=== PATIENT | male | born 1940 | race Caucasian/White ===

== ENCOUNTER 2018-10-25 08:15 | Outpatient (CLI) | payer MEDICARE ==
--- NOTE | 2018-10-25 08:42 | RAD ---
EXAM: Two views chest PROVIDED CLINICAL HISTORY: Cough COMPARISON: 07/20/2011. FINDINGS: Postsurgical changes related to CABG are noted. Coronary artery stent overlies the right cardiac bord er. Cardiac silhouette is within normal limits.There are increased interstitial densities throughout the lungs greater in the upper lung zones is overall nonspecific. This could be related to chronic interstitial lung changes, but infectious process or pulmonary edema is a differential consideration. No consolidation or pleural fluid is identified. There is evidence of prior vertebropl asty changes involving the L2 vertebral body partially imaged on the lateral view. IMPRESSION: Interstitial densities within the lungs bilaterally greater in the upper lung zones and on the right. Findings are nonspecific and could be related to chronic interstitial lung changes, but an element of mild pulmonary edema or infectious process is a possibility. Follow-up evaluation is recommended.
== END 2018-10-25 08:16 | disposition home or self-care (01) ==
LOC: SCSRAD 08:15
PROVIDERS: ATTEND Family Medicine
DX: R05 Cough (principal); J98.4 Other disorders of lung
CPT/HCPCS: 71046

== ENCOUNTER 2018-12-11 11:59 | Outpatient (CLI) | payer MEDICARE ==
--- NOTE | 2018-12-11 13:17 | CT ---
CT of the chest: 12/11/2018 COMPARISON: None available HISTORY: Chronic cough, wheezing, history of testicular cancer TECHNIQUE: Axial CT imaging is obtained at 5 mm intervals from the thoracic inlet through the upper a bdomen with IV contrast. Coronal reformatted imaging obtained. FINDINGS: No axillary, hilar, or mediastinal lymphadenopathy is noted. The imaged upper abdomen appears grossly unremarkable. Midline sternotomy wires are present. There is extensive coronary arterial calcification. Mediastinal clips are present, evidence of prior CABG. No pleural, pericardial, or mediastinal fluid is seen. There is no pneumothorax. Extensive coarse increased linear interstitial densities are noted throughout both lungs with a perip heral predominance. This includes the bilateral lower lobes, particularly inferiorly/posteriorly, the inferior aspect of the right middle lobe, and the superior aspect of bilateral lung apices. There does appear to be a mild degree of superimposed mild bilateral upper lobe groundglass opacity. There is peripheral subpleural pulmonary parenchymal cystic change, especially within the bilateral l ower lobes inferiorly, evidence of a degree of pulmonary fibrosis. There is no discrete/dominant pulmonary parenchymal mass lesion or nodule noted on the left. There is nonspecific a nodule along the major fissure, best seen on coronal image 69, measuring 7 mm in transverse dimension. This likely represents a lymph node. Review of the osseous structures demonstrates no discrete worrisome lytic or blastic bone lesion. IMPRESSION: Diffuse interstitial thickening with a peripheral predominance. Subpleural cystic changes , particularly in the lung bases, suggesting early honeycombing. These findings are suspicious for pulmonary fibrosis. Pulmonary consultation is advised.
== END 2018-12-11 12:00 | disposition home or self-care (01) ==
LOC: CT 11:59
PROVIDERS: ATTEND Family Medicine
DX: J84.9 Interstitial pulmonary disease, unspecified (principal); R05 Cough; R06.02 Shortness of breath; R06.2 Wheezing; J98.4 Other disorders of lung; Z92.21 Personal history of antineoplastic chemotherapy
CPT/HCPCS: 71260; 82565

== ENCOUNTER 2019-03-07 12:19 | Outpatient (CLI) | payer MEDICARE ==
--- NOTE | 2019-03-11 10:12 | PFT ---
PATIENT HISTORY: HEIGHT: 68 IN WEIGHT: 145 SMOKER: NO HOW LON YRS PACKS PER DAY: 1 PRODUCTIVE COUGH: LUNG DISEASE: PHYSICIAN INTERPRETATION PFT data: 03/07/19 FEV1 1.78 L, 64% predicted, FVC 2.08 L, 54% predicted. There is no improvement in flows after Bronchodilatation. Total lung capacity is moderately reduced at 3.24, 49% predicted. DLCO is severely reduced at 5.73, 22% predicted, and does correct fully for volume. Maximum Ventilatory Volume is appropriate for this FEV1. IMPRESSION: This is a moderate to severe restrictive pulmonary impairment. Gas exchange is severely reduced. Lighthouse Keeper: LISANDRA Crimper Assembler: LISANDRA MASCORRO
== END 2019-03-07 12:20 | disposition home or self-care (01) ==
LOC: CP 12:19
PROVIDERS: ATTEND Internal Medicine
DX: J84.9 Interstitial pulmonary disease, unspecified (principal)
CPT/HCPCS: 94060; 94727; 94729

== ENCOUNTER 2019-03-28 14:34 | Outpatient (CLI) | payer MEDICARE ==
--- NOTE | 2019-03-28 15:59 | RAD ---
CHEST 2 VIEWS: HISTORY: Cough, testicular cancer on chemotherapy treatment. COMPARISON: 10/25/2018. FINDINGS: Postop midline sternotomy. Very extensive interstitial and reticulonodular parenchymal changes throu ghout both lungs, evidence for extensive chronic interstitial lung disease. No new confluent lobar p neumonia or significant pleural effusion. Heart size is within normal limits. IMPRESSION: Very extensive but overall stable chronic interstitial lung disease. POS: TPC
== END 2019-03-28 14:35 | disposition home or self-care (01) ==
LOC: RAD 14:34
PROVIDERS: ATTEND Thoracic Surgery (Cardiothoracic Vascular Surgery)
DX: R91.8 Other nonspecific abnormal finding of lung field (principal); J84.9 Interstitial pulmonary disease, unspecified
CPT/HCPCS: 71046

== ENCOUNTER 2019-04-01 16:00 | Outpatient (CLI) | payer MEDICARE | END 2019-04-01 16:01 | disposition home or self-care (01) | LOC: SLEEPLAB 16:00 | PROVIDERS: ATTEND Internal Medicine | DX: G47.33 Obstructive sleep apnea (adult) (pediatric) (principal); R53.83 Other fatigue; R51 Headache; R06.83 Snoring; R35.1 Nocturia | CPT/HCPCS: 95806 ==

== ENCOUNTER 2019-04-02 15:15 | Inpatient (IN) | payer MEDICARE ==
[2019-04-03] MEDS ORDERED: Midazolam HCl 2 mg/2 ml Vial ONE (06:34)
[2019-04-03] MEDS ORDERED: Fentanyl 100 MCG/2 ML VIAL ONE ×2 (06:34→10:33)
[2019-04-03] MEDS ORDERED: Ondansetron HCl/PF 4 MG/2 ML Vial IVP PRN (07:03)
[2019-04-03] MEDS ORDERED: Bupivacaine HCl 0.5%/Epinephrine 1:200,000/PF 30 ml Vial ONE (07:19)
[2019-04-03] MEDS ORDERED: SUGAMMADEX SODIUM 200 MG/2 ML VIAL ONE (09:28)
--- NOTE | 2019-04-03 10:35 | RAD ---
EXAM: Chest one view: HISTORY: Status post thoracotomy COMPARISON: 03/28/2019 FINDINGS: Right chest tube in place with probable very tiny right apical pneumothorax. Heart size: Within normal limits. Lungs: Biapical pleural thickening. Scattered linear and interstitial and reticular nodular parenchymal changes, stable. No new confluent pneumonia or acute edema.. IMPRESSION: Right chest tube in place with very tiny right apical pneumothorax. Stable chronic lung changes. Cont inued short-term follow-up.
[2019-04-03] MEDS ORDERED: PROPOFOL 200 MG/20 ML VIAL ONE (10:58)
[2019-04-03] MEDS ORDERED: Lidocaine 1% PF 5 ML VIAL ONE (10:58)
[2019-04-03] MEDS ORDERED: Ketorolac Tromethamine 30 MG/ML VIAL ONE (10:58)
[2019-04-03] MEDS ORDERED: Dexamethasone 20 MG/5 ML VIAL ONE (10:58)
[2019-04-03] MEDS ORDERED: Ondansetron PF 4 MG/2 ML Vial ONE (10:58)
[2019-04-03] MEDS ORDERED: Rocuronium Bromide 10 MG/ML (10ML VIAL) ONE (10:58)
[2019-04-03] MEDS ORDERED: Fentanyl 100 MCG/2 ML VIAL SLOW IVP PRN ×2 (13:01)
[2019-04-03] MEDS ORDERED: Lactated Ringer's 1,000 ML IV SCH (13:01)
[2019-04-03] MEDS ORDERED: Ondansetron PF 4 MG/2 ML Vial IVP PRN (13:01)
[2019-04-03] MEDS ORDERED: Ketorolac Tromethamine 30 MG/ML VIAL IVP PRN (13:01)
[2019-04-03 14:41] VITALS: BMI 22.0
[2019-04-03] MEDS: CEFAZOLIN 2 GM in Premix Bag 1 BAG IVPB SCH ×2 (15:39→22:17)
[2019-04-03] MEDS: HYDROcodone/Acetaminophen 5/325 mg Tablet PO PRN ×2 (18:13→22:16)
[2019-04-03] MEDS: Aspirin 81 mg Enteric Coated Tablet PO SCH (20:24)
[2019-04-03] MEDS: Metoprolol Tartrate 25 MG TAB PO SCH (20:24)
[2019-04-03] MEDS: Atorvastatin Calcium 40 MG TAB PO SCH (20:24)
[2019-04-03] MEDS: Enoxaparin Sodium 30 MG/0.3 ML SYRINGE SC SCH (20:25)
--- NOTE | 2019-04-03 21:29 | CON ---
DATE OF CONSULTATION: 04/03/2019 HISTORY OF PRESENT ILLNESS: Ananth Maya is a 78-year-old male who was admitted for thoracoscopic lung biopsy. He has been followed by Dr. Novoa. Pulmonary function tests have shown an FEV1 of 1.78, which is 64% of predicted and a forced vital capacity of 2.0, it was 54% of predicted. Diffusion was decreased , but partially corrected for lung volumes. He has never been in the hospital here. PAST MEDICAL HISTORY: Noncontributory. FAMILY HISTORY: Negative for lung disease in early age. ALLERGIES: REPORTED TO ADHESIVE TAPE. SOCIAL HISTORY: He is nonsmoker or drinker at this time. REVIEW OF SYSTEMS: Ten-point review of systems completed, otherwise negative. PHYSICAL EXAMINATION: VITAL SIGNS: He is afebrile. Heart rate is 55, respiratory rate is 24, oximetry is actually 94 to 95 on room air, blood pressure 129/67. HEENT: Pupils are equal. Sclerae are anicteric. NECK: Without lymphadenopathy. LUNGS: Remarkable for faint crackles at lung bases. HEART: Regular rhythm. S1 and S2 are normal. ABDOMEN: Soft, nontender. EXTREMITIES: Without clubbing, cyanosis, or edema. NEURO: Nonfocal. LABORATORY DATA: CT of his chest was reviewed. He has a diffuse increase in interstitial marking. He has no honeycombing. IMPRESSION: Status post thoracoscopic lung biopsy. We will follow the other physicians caring for him. TIME SPENT: This is a 70-minute consult, with greater than 50% of the time spent on the unit coordinating care. Job ID: [id number] [facility]
--- NOTE | 2019-04-04 07:58 | RAD ---
EXAM: Single view of the chest HISTORY: Status post thoracotomy with right pneumothorax COMPARISON: 04/03/2019 FINDINGS: Single view of the chest shows a normal sized cardiomediastinal silhouette. The patient is status post sternotomy. There is a right chest tube. No obvious pneumothorax is seen on today's examination. Increased interstitial markings are present. There is no evidence of consolidation, mas s, or pleural effusion. The bones are unremarkable. IMPRESSION: Nonvisualization of previously seen right apical pneumothorax.
[2019-04-04] MEDS: CEFAZOLIN 2 GM in Premix Bag 1 BAG IVPB SCH (09:58)
[2019-04-04] MEDS: Metoprolol Tartrate 25 MG TAB PO SCH ×2 (09:59→20:47)
--- NOTE | 2019-04-04 10:00 | PRG ---
DATE OF SERVICE: 04/04/2019 SUBJECTIVE: Ananth Maya did well overnight. He still has chest tube to suction. OBJECTIVE: VITAL SIGNS: He is afebrile. Heart rate is in the high 40s to low 50s, respiratory rates in the teens, and oximetry is 96% on room air. LUNGS: He has fine crackles at both lung bases. HEART: Regular rhythm. ABDOMEN: Soft. Chest tube drainage was 20 mL reported. IMPRESSION AND PLAN: Status post surgical lung biopsy, pathology is pending. Job ID: [id number]
--- NOTE | 2019-04-04 10:04 | OP ---
DATE OF PROCEDURE: 04/03/2019 PREOPERATIVE DIAGNOSIS: Interstitial lung disease. POSTOPERATIVE DIAGNOSIS: Interstitial lung disease. PROCEDURE PERFORMED: Right thoracoscopy with wedge biopsies from the middle and upper lobe. ANESTHESIA: General. DESCRIPTION OF PROCEDURE: After adequate anesthesia had been obtained with double-lumen endotracheal tube, the patient was placed in the left lateral decubitus position. Two port sites were placed well initially for the scope and then a second for grasping using 5-mm ports. A 12-mm port was then introduced following which initially middle lobe was biopsied using 2 staple firings and then the upper lobe, 3 staple firings. There were no gross abnormalities visible on the lung, although there were some filmy adhesions between the upper lobe in the chest wall, which were not taken down. Following completion of the biopsies, port sites were inspected for bleeding and a 28 chest drain was placed. Marcaine was used to infiltrate the port sites, following which the patient's wounds were closed and he is to be taken to the recovery room. Job ID: [id number]
[2019-04-04] MEDS: HYDROcodone/Acetaminophen 5/325 mg Tablet PO PRN ×2 (12:01→18:24)
[2019-04-04] MEDS: Atorvastatin Calcium 40 MG TAB PO SCH (20:46)
[2019-04-04] MEDS: Aspirin 81 mg Enteric Coated Tablet PO SCH (20:46)
[2019-04-04] MEDS: Enoxaparin Sodium 30 MG/0.3 ML SYRINGE SC SCH (20:47)
[2019-04-05] MEDS: HYDROcodone/Acetaminophen 5/325 mg Tablet PO PRN (06:48)
[2019-04-05] MEDS: Metoprolol Tartrate 25 MG TAB PO SCH (08:11)
[2019-04-05 08:22] VITALS: BP 130/78; TEMP 97.2
--- NOTE | 2019-04-05 08:49 | RAD ---
SINGLE VIEW CHEST: Date: 04/05/19 COMPARISON: 04/04/19. HISTORY: Status post thoracotomy. FINDINGS: Single view of the chest shows normal sized cardiomediastinal silhouette. The patient is status post sternotomy. The right-sided chest tube has been removed. No obvious pneumothorax is seen. Increased i nterstitial lung markings are present. IMPRESSION: Removal of right chest tube without evidence of pneumothorax. POS: CET
--- NOTE | 2019-04-05 14:36 | DIS ---
DATE OF ADMISSION: 04/03/2019 DATE OF DISCHARGE: 04/05/2019 HOSPITAL COURSE: The patient underwent a thoracoscopic right lung biopsy for interstitial lung disease, diagnosis unspecified. His postoperative course was unremarkable and his chest tube was removed on the day of discharge. He had no air leak at any time during the hospital course and had minimal output. Discharge and followup instructions were given. Job ID: [id number]
[2019-04-08] MEDS ORDERED: Ibuprofen 200 MG TAB PO SCH (22:00)
[2019-04-09 09:10] LABS: Fungus Stain Final report (.)
== END 2019-04-05 09:00 | disposition home or self-care (01) | DRG 168 ==
LOC: SURG A 04-03 06:01 → EDSTATUS 04-03 15:15
PROVIDERS: ADMIT Thoracic Surgery (Cardiothoracic Vascular Surgery); ATTEND Thoracic Surgery (Cardiothoracic Vascular Surgery)
PROC: 0BBD4ZX Excision of Right Middle Lung Lobe, Percutaneous Endoscopic Approach, Diagnostic (ICD-10-PCS; principal; 2019-04-03)
PROC: 0BBC4ZX Excision of Right Upper Lung Lobe, Percutaneous Endoscopic Approach, Diagnostic (ICD-10-PCS; 2019-04-03)
DX: J84.9 Interstitial pulmonary disease, unspecified (principal); J84.10 Pulmonary fibrosis, unspecified; E78.5 Hyperlipidemia, unspecified; G43.909 Migraine, unspecified, not intractable, without status migrainosus; K21.9 Gastro-esophageal reflux disease without esophagitis; I25.10 Atherosclerotic heart disease of native coronary artery without angina pectoris; I48.91 Unspecified atrial fibrillation; H40.9 Unspecified glaucoma; Z79.899 Other long term (current) drug therapy; Z95.1 Presence of aortocoronary bypass graft; Z87.891 Personal history of nicotine dependence; Z85.47 Personal history of malignant neoplasm of testis; Z95.5 Presence of coronary angioplasty implant and graft; I25.2 Old myocardial infarction; Z85.828 Personal history of other malignant neoplasm of skin; Z92.21 Personal history of antineoplastic chemotherapy
CPT/HCPCS: 71045; 80048; 85027; 87070; 87102; 87205; 87206; 88184; 88307; 88325; 93005; 93010; 95806; J0670; J0690; J1650; J2250; J3010

== ENCOUNTER 2019-04-02 15:20 | Outpatient (CLI) | payer MEDICARE ==
[2019-04-02 16:53] LABS: Hemoglobin 14.7 g/dL (14.0-18.0); Mean Corpuscular HGB CONC 33.4 g/dL (32.0-36.0); Mean Corpuscular Hemoglobin 31.5 pg (27.0-31.0); Mean Corpuscular Volume 94.3 fL (78.0-98.0); Mean Platelet Volume 8.2 fL (7.4-10.4); Platelet Count 159 thou/uL (130-400); RBC Distribution Width 12.6 % (11.5-14.5); Red Blood Cell (RBC) Count 4.66 mill/uL (4.70-6.10); White Blood Cell (WBC) Count 6.8 thou/uL (4.8-10.8)
[2019-04-02 17:19] LABS: Anion Gap 11 mmol/L (10-20); BUN (Urea Nitrogen) 13 mg/dL (8.4-25.7); Calc. Creatinine Clearance 0 mL/min (70-130); Calcium 9.5 mg/dL (7.8-10.44); Carbon Dioxide 27 mmol/L (23-31); Chloride 105 mmol/L (98-107); Estimated GFR-MDRD 79; Glucose 98 mg/dL (83-110); Potassium 4.1 mmol/L (3.5-5.1); Sodium 139 mmol/L (136-145)
--- NOTE | 2019-04-03 20:02 | EKG ---
Test Reason : Blood Pressure : / mmHG Vent. Rate : 055 BPM Atrial Rate : 055 BPM P-R Int : 162 ms QRS Dur : 090 ms QT Int : 450 ms P-R-T Axes : 027 -04 050 degrees QTc Int : 430 ms Sinus bradycardia Otherwise normal ECG When compared with ECG of 20-JUL-2009 07:29, Vent. rate has decreased BY 27 BPM Nonspecific T wave abnormality no longer evident in Inferior leads Confirmed by GLORIA DEL RIO, SSiddharth ([id number]) on 04/03/2019 8:02:05 PM Referred By: GRACIELA Confirmed By:DR. Cricket CASTRO MD
== END 2019-04-02 15:21 | disposition home or self-care (01) ==
LOC: LABBT 15:20
PROVIDERS: ATTEND Thoracic Surgery (Cardiothoracic Vascular Surgery)
DX: Z01.818 Encounter for other preprocedural examination (principal); J98.4 Other disorders of lung
CPT/HCPCS: 80048; 85027; 93005; 93010

== ENCOUNTER 2019-04-23 14:47 | Outpatient (CLI) | payer MEDICARE ==
--- NOTE | 2019-04-23 15:01 | RAD ---
EXAM: Chest 2 views: HISTORY: Lung disease COMPARISON: 03/28/2019 FINDINGS: There is a normal-sized cardiomediastinal silhouette. Patient is status post sternotomy. Increased i nterstitial markings are present. There is no evidence of consolidation, mass, or pleural effusion. The bones are unremarkable. IMPRESSION: No evidence of acute cardiopulmonary disease
== END 2019-04-23 14:48 | disposition home or self-care (01) ==
LOC: RAD 14:47
PROVIDERS: ATTEND Thoracic Surgery (Cardiothoracic Vascular Surgery)
DX: J98.4 Other disorders of lung (principal)
CPT/HCPCS: 71046